=== PATIENT | female | born 1990 | race Caucasian/White ===

== ENCOUNTER 2016-05-31 18:28 | Emergency (ER) | payer OTHER ==
[~2016-05-31] VITALS: Ht 170.2 cm; Wt 57.4 kg
[~2016-05-31 18:28] MED LIST: BENTYL10 MG PO; COLACE100 MG PO; FLEXERIL10 MG PO; MECLIZINE HCL25 MG PO; MEDROL DOSEPAK4 MG PO; MOBIC15 MG PO; MOTRIN600 MG PO; MOTRIN800 MG PO; NAPROXEN500 MG PO; NORCO 7.5/321 TABLET PO; ROXICODONE5 MG PO; TORADOL10 MG PO; ULTRAM50 MG PO; VALIUM5 MG PO; VALTREX1000 MG PO; ZOFRAN4 MG PO
[2016-05-31 19:10] LABS: HEMATOCRIT 43.3 % (36.0-46.0); MCH 28.9 PG (29.0-34.0); MCHC 33.7 G/DL (30.0-36.0); MCV 85.6 FL (83-99); MEAN PLAT.VOLUME 9.7 uM^3 (9.5-12.4); PLATELET COUNT 227 K/uL (156-360); RBC DIS.WIDTH-CV 12.7 % (11.8-14.6); RBC DIS.WIDTH-SD 38.6 % (39-53); RED BLOOD COUNT 5.06 M/uL (3.80-5.20); WHITE BLOOD COUNT 7.5 K/uL (4.1-10.2)
[2016-05-31 19:19] LABS: CHLORIDE 99 mEq/L (99-109); POTASSIUM 3.5 mEq/L (3.7-5.4); SODIUM 138 mEq/L (136-147)
[2016-05-31 19:21] LABS: GLUCOSE 108 mg/dL (70-99)
[2016-05-31 19:23] LABS: ANION GAP 13 MEQ/L (2-14); TOTAL BILIRUBIN 1.1 mg/dL (0.0-1.0)
[2016-05-31 19:25] LABS: ALKALINE PHOSPHATASE 52 IU/L (3-129); GFR ESTIMATE (CALCULATED) > 59 mL/min/
[2016-05-31 19:26] LABS: UREA NITROGEN (BUN) 15 mg/dL (9-23)
[2016-05-31 19:28] LABS: LIPASE 7 U/L (1.0-51.0)
[2016-05-31 19:33] LABS: ADD MIUA? YES; BILIRUBIN NEGATIVE; BLOOD NEGATIVE; COLOR YELLOW ((YELLOW)); GLUCOSE (STRIP) NEGATIVE; KETONES 15; LEUKOCYTES NEGATIVE; NITRITE NEGATIVE; PROTEIN (STRIP) 30; SPECIFIC GRAVITY 1.031 (1.000-1.030); UROBILINOGEN 0.2 MG/DL (0.2-1.0)
[2016-05-31 19:36] LABS: QUANTITATIVE HCG < 4.0 MIU/ML
[2016-05-31 20:06] LABS: BACTERIA 3+; EPITHELIAL CELLS 2+; MUCUS 1+; RED BLOOD CELLS NONE SEEN /HPF (0-5); UCUL ADDED? YES
[2016-05-31 20:07] LABS: CASTS NONE SEEN /LPF; CRYSTALS NONE SEEN
[2016-05-31] MEDS ORDERED: ZOFRAN ODT4 MG PO (20:20)
[2016-05-31] MEDS ORDERED: CIPRO500 MG PO (20:20)
[2016-05-31 20:45] VITALS: BP 110/70
== END 2016-05-31 20:50 | disposition home or self-care (01) ==
LOC: EME 18:28
PROVIDERS: Physician Assistant
DX: N39.0 Urinary tract infection, site not specified (principal); R11.2 Nausea with vomiting, unspecified; E86.0 Dehydration
CPT/HCPCS: 80053; 81003; 83690; 84702; 85027; 87086; 99281; 99284; J1885; J2405; J7030; S0028

== ENCOUNTER 2016-07-18 14:35 | Emergency (ER) | payer OTHER ==
[~2016-07-18 14:35] MED LIST changes: +CIPRO500 MG PO; +ZOFRAN ODT4 MG PO
[2016-07-18 14:51] LABS: EOSINOPHIL (%) 0.8 % (0-5); EOSINOPHIL COUNT 0.1 K/uL (0-0.3); HEMATOCRIT 39.5 % (36.0-46.0); IMMATURE GRANULOCYTE (%) 0.5 % (0.0-0.7); INSTRUMENT ABS NEUTROPHIL CT 5.6 K/uL; LYMPHOCYTE COUNT 1.4 K/uL (1.0-2.8); MCH 28.6 PG (29.0-34.0); MCHC 32.9 G/DL (30.0-36.0); MEAN PLAT.VOLUME 9.4 uM^3 (9.5-12.4); MONOCYTE (%) 8.6 % (3-12); MONOCYTE COUNT 0.7 K/uL (0-0.8); NEUTROPHIL (%) 71.4 % (45-76); NEUTROPHIL COUNT 5.6 K/uL (1.8-6.4); PLATELET COUNT 248 K/uL (156-360); RBC DIS.WIDTH-CV 12.7 % (11.8-14.6); RBC DIS.WIDTH-SD 40.2 % (39-53); RED BLOOD COUNT 4.54 M/uL (3.80-5.20); WHITE BLOOD COUNT 7.8 K/uL (4.1-10.2)
[2016-07-18 15:03] LABS: AMYLASE 74 IU/L (1-118); CHLORIDE 101 mEq/L (99-109); POTASSIUM 3.6 mEq/L (3.7-5.4); SODIUM 136 mEq/L (136-147)
[2016-07-18 15:05] LABS: GLUCOSE 90 mg/dL (70-99)
[2016-07-18 15:06] LABS: ANION GAP 9 MEQ/L (2-14)
[2016-07-18 15:08] LABS: SERUM ETHYL ALCOHOL < 10 mg/dL
[2016-07-18 15:09] LABS: GFR ESTIMATE (CALCULATED) > 59 mL/min/
[2016-07-18 15:10] LABS: UREA NITROGEN (BUN) 16 mg/dL (9-23)
[2016-07-18 15:12] LABS: LIPASE 40 U/L (1.0-51.0)
[2016-07-18 15:17] LABS: QUANTITATIVE HCG 473.7 MIU/ML
[2016-07-18 16:11] LABS: ADD MIUA? NO; BILIRUBIN NEGATIVE; BLOOD NEGATIVE; COLOR STRAW ((YELLOW)); GLUCOSE (STRIP) NEGATIVE; KETONES NEGATIVE; LEUKOCYTES NEGATIVE; NITRITE NEGATIVE; PROTEIN (STRIP) NEGATIVE; UCUL ADDED? NO; UROBILINOGEN 0.2 MG/DL (0.2-1.0)
[2016-07-18 16:21] LABS: AMPHETAMINE NEGATIVE (500 ng/mL); BARBITURATES NEGATIVE (200 ng/mL); BENZODIAZEPINES NEGATIVE (150 ng/mL); COCAINE NEGATIVE (150 ng/mL); INTERNAL CONTROLS VALID? YES; METHADONE NEGATIVE (200 ng/mL); METHAMPHETAMINE NEGATIVE (500 ng/mL); OPIATES (MORPHINE) NEGATIVE (100 ng/mL); OXYCODONE NEGATIVE (100 ng/mL); PHENCYCLIDINE NEGATIVE (25 ng/mL); PROPOXYPHENE NEGATIVE (300 ng/mL); THC CANNABINOIDS NEGATIVE (50 ng/mL); TRICYCLIC ANTIDEPRESSANTS NEGATIVE (300 ng/mL)
[2016-07-18 16:24] LABS: SPECIFIC GRAVITY 1.058 (1.000-1.030)
== END 2016-07-18 16:29 | disposition home or self-care (01) ==
LOC: TRA 14:35
PROVIDERS: Emergency Medicine
DX: O9A.211 Injury, poisoning and certain other consequences of external causes complicating pregnancy, first trimester (principal); S20.212A Contusion of left front wall of thorax, initial encounter; S30.1XXA Contusion of abdominal wall, initial encounter; Z3A.01 Less than 8 weeks gestation of pregnancy; W55.12XA Struck by horse, initial encounter
CPT/HCPCS: 71260; 74177; 80048; 81003; 82150; 83690; 84702; 85025; 86850; 86900; 86901; 99281; 99285; G0480; J2405; J3010

== ENCOUNTER 2016-08-23 00:39 | Emergency (ER) | payer OTHER ==
[~2016-08-23] VITALS: Ht 170.2 cm; Wt 60.3 kg
[2016-08-23 01:11] LABS: MCH 29.2 PG (29.0-34.0); MCHC 34.7 G/DL (30.0-36.0); MCV 84.1 FL (83-99); MEAN PLAT.VOLUME 9.4 uM^3 (9.5-12.4); PLATELET COUNT 241 K/uL (156-360); RBC DIS.WIDTH-CV 11.9 % (11.8-14.6); RBC DIS.WIDTH-SD 36.6 % (39-53); RED BLOOD COUNT 4.28 M/uL (3.80-5.20); WHITE BLOOD COUNT 8.3 K/uL (4.1-10.2)
[2016-08-23 01:20] LABS: ADD MIUA? NO; BILIRUBIN NEGATIVE; BLOOD NEGATIVE; COLOR STRAW ((YELLOW)); GLUCOSE (STRIP) NEGATIVE; KETONES NEGATIVE; LEUKOCYTES NEGATIVE; NITRITE NEGATIVE; PROTEIN (STRIP) NEGATIVE; SPECIFIC GRAVITY 1.009 (1.000-1.030); UCUL ADDED? NO; UROBILINOGEN 0.2 MG/DL (0.2-1.0)
[2016-08-23 01:50] LABS: QUANTITATIVE HCG 136894.7 MIU/ML
[2016-08-23 03:04] LABS: CHLORIDE 103 mEq/L (99-109); POTASSIUM 3.6 mEq/L (3.7-5.4); SODIUM 137 mEq/L (136-147)
[2016-08-23 03:06] LABS: GLUCOSE 94 mg/dL (70-99)
[2016-08-23 03:07] LABS: ANION GAP 12 MEQ/L (2-14)
[2016-08-23 03:08] LABS: TOTAL BILIRUBIN 0.3 mg/dL (0.0-1.0)
[2016-08-23 03:09] LABS: ALKALINE PHOSPHATASE 34 IU/L (3-129)
[2016-08-23 03:10] LABS: GFR ESTIMATE (CALCULATED) > 59 mL/min/
[2016-08-23 03:11] LABS: UREA NITROGEN (BUN) 9 mg/dL (9-23)
[2016-08-23 04:28] VITALS: BP 116/69
== END 2016-08-23 04:41 | disposition home or self-care (01) ==
LOC: EME 00:39
DX: O26.891 Other specified pregnancy related conditions, first trimester (principal); M54.9 Dorsalgia, unspecified; Z3A.09 9 weeks gestation of pregnancy
CPT/HCPCS: 76770; 76801; 80053; 81003; 84702; 85027; 99281; 99284

== ENCOUNTER 2017-03-15 22:34 | Inpatient (IN) | payer OTHER ==
[~2017-03-15] VITALS: Ht 170.2 cm; Wt 69.8 kg
[2017-03-15 22:50] VITALS: BP 116/77
[2017-03-15] MEDS ORDERED: PRENATAL TABLE1 EAC3 PO (23:07)
[2017-03-16] VITALS (34 sets, daily range): BP systolic 75–136; BP diastolic 40–89
[2017-03-16 01:04] LABS: AMPHETAMINE NEGATIVE (500 ng/mL); BARBITURATES NEGATIVE (200 ng/mL); BENZODIAZEPINES NEGATIVE (150 ng/mL); COCAINE NEGATIVE (150 ng/mL); INTERNAL CONTROLS VALID? YES; METHADONE NEGATIVE (200 ng/mL); METHAMPHETAMINE NEGATIVE (500 ng/mL); OPIATES (MORPHINE) NEGATIVE (100 ng/mL); OXYCODONE NEGATIVE (100 ng/mL); PHENCYCLIDINE NEGATIVE (25 ng/mL); PROPOXYPHENE NEGATIVE (300 ng/mL); THC CANNABINOIDS NEGATIVE (50 ng/mL); TRICYCLIC ANTIDEPRESSANTS NEGATIVE (300 ng/mL)
[2017-03-16 10:25] LABS: EOSINOPHIL (%) 0.2 % (0-5); HEMATOCRIT 35.9 % (36.0-46.0); IMMATURE GRANULOCYTE (%) 0.5 % (0.0-0.7); IMMATURE GRANULOCYTE COUNT 0.1 K/uL; INSTRUMENT ABS NEUTROPHIL CT 10.6 K/uL; MCH 29.5 PG (29.0-34.0); MCHC 33.7 G/DL (30.0-36.0); MCV 87.6 FL (83-99); MEAN PLAT.VOLUME 10.3 uM^3 (9.5-12.4); MONOCYTE (%) 7.3 % (3-12); MONOCYTE COUNT 0.9 K/uL (0-0.8); NEUTROPHIL (%) 84.1 % (45-76); NEUTROPHIL COUNT 10.6 K/uL (1.8-6.4); PLATELET COUNT 175 K/uL (156-360); RBC DIS.WIDTH-CV 13.1 % (11.8-14.6); RBC DIS.WIDTH-SD 41.8 % (39-53); WHITE BLOOD COUNT 12.6 K/uL (4.1-10.2)
[2017-03-17 00:42] VITALS: BP 110/59
[2017-03-17 01:58] VITALS: BP 101/57
[2017-03-17 06:54] LABS: EOSINOPHIL (%) 0.3 % (0-5); EOSINOPHIL COUNT 0.1 K/uL (0-0.3); HEMATOCRIT 33.3 % (36.0-46.0); IMMATURE GRANULOCYTE (%) 0.6 % (0.0-0.7); IMMATURE GRANULOCYTE COUNT 0.1 K/uL; INSTRUMENT ABS NEUTROPHIL CT 13.8 K/uL; LYMPHOCYTE COUNT 1.4 K/uL (1.0-2.8); MCH 29.7 PG (29.0-34.0); MCHC 33.6 G/DL (30.0-36.0); MCV 88.3 FL (83-99); MEAN PLAT.VOLUME 10.5 uM^3 (9.5-12.4); MONOCYTE COUNT 1.7 K/uL (0-0.8); NEUTROPHIL (%) 80.8 % (45-76); NEUTROPHIL COUNT 13.8 K/uL (1.8-6.4); PLATELET COUNT 173 K/uL (156-360); RBC DIS.WIDTH-CV 13.2 % (11.8-14.6); RBC DIS.WIDTH-SD 42.7 % (39-53); RED BLOOD COUNT 3.77 M/uL (3.80-5.20); WHITE BLOOD COUNT 17.1 K/uL (4.1-10.2)
[2017-03-17 07:22] VITALS: BP 100/59
[2017-03-17 15:17] VITALS: BP 109/62
[2017-03-17 23:00] VITALS: BP 99/59
[2017-03-18 07:10] VITALS: BP 110/57
[2017-03-18] MEDS ORDERED: IBUPROFEN800 MG PO (11:01)
== END 2017-03-18 13:45 | disposition home or self-care (01) | DRG 775 ==
LOC: LDRP-OP 22:34 → 2WEST 22:35 → LDRP-OP 04-28 14:23
PROVIDERS: Advanced Practice Midwife
PROC: 0HQ9XZZ Repair Perineum Skin, External Approach (ICD-10-PCS; principal; 2017-03-16)
PROC: 3E0R3BZ Introduction of Anesthetic Agent into Spinal Canal, Percutaneous Approach (ICD-10-PCS; principal; 2017-03-16)
PROC: 10E0XZZ Delivery of Products of Conception, External Approach (ICD-10-PCS; principal; 2017-03-16)
PROC: 00HU33Z Insertion of Infusion Device into Spinal Canal, Percutaneous Approach (ICD-10-PCS; principal; 2017-03-16)
PROC: 10907ZC Drainage of Amniotic Fluid, Therapeutic from Products of Conception, Via Natural or Artificial Opening (ICD-10-PCS; principal; 2017-03-16)
DX: O70.0 First degree perineal laceration during delivery (principal); O63.0 Prolonged first stage (of labor); O63.1 Prolonged second stage (of labor); O99.824 Streptococcus B carrier state complicating childbirth; O99.353 Diseases of the nervous system complicating pregnancy, third trimester; G43.909 Migraine, unspecified, not intractable, without status migrainosus; Z3A.38 38 weeks gestation of pregnancy; Z37.0 Single live birth
CPT/HCPCS: 76818; 85025; C1755; G0378; J0595; J2540; J3010; J7120; Q0169